=== PATIENT | female | born 1995 | race African-American/Black ===

== ENCOUNTER 2017-11-06 18:37 | Emergency (ER) | payer OTHER ==
[2017-11-06 19:07] LABS: BASOPHILS % (AUTO) 0.4 %; EOSINOPHILS # (AUTO) 0.1 10^3/uL (0.0-0.7); EOSINOPHILS % (AUTO) 1.4 %; HGB - HEMOGLOBIN 12.3 g/dL (12.0-16.0); LYMPHOCYTES # (AUTO) 3.1 10^3/uL (1.5-3.5); LYMPHOCYTES % (AUTO) 36.1 %; MEAN CORPUSCULAR HGB CONC 32.7 g/dL (32.0-36.0); MEAN CORPUSCULAR VOLUME 79.4 fL (81.0-99.0); MEAN PLATELET VOLUME 6.8 fL (7.9-10.8); MONOCYTES # (AUTO) 0.4 10^3/uL (0.0-1.0); MONOCYTES % (AUTO) 4.3 %; NEUTROPHILS % (AUTO) 57.8 %; PLT - PLATELET COUNT 295 10^3/uL (130-450); RED BLOOD COUNT 4.74 10^6/uL (4.20-5.40); RED CELL DISTRIBUTION WIDTH 14.9 % (12.0-15.0); WHITE BLOOD COUNT 8.6 x10^3/uL (4.8-10.8)
[2017-11-06 19:20] LABS: ALBUMIN 4.3 g/dL (3.2-5.5); ALBUMIN/GLOBULIN RATIO 1.1 (1.0-2.2); BILIRUBIN,TOTAL 0.3 mg/dL (0.2-1.0); CALCIUM 9.3 mg/dL (8.5-10.3); CREATININE 0.9 mg/dL (0.4-1.0); TOTAL PROTEIN 8.2 g/dL (6.7-8.2)
[2017-11-06 20:55] LABS: BILIRUBIN,URINE NEGATIVE (NEGATIVE); GLUCOSE, URINE (UA) NEGATIVE (NEGATIVE); KETONES,URINE (UA) NEGATIVE (NEGATIVE); LEUKOCYTE ESTERASE, URINE NEGATIVE (NEGATIVE); NITRITE,URINE NEGATIVE (NEGATIVE); OCCULT BLOOD,URINE SMALL (NEGATIVE); PROTEIN,URINE NEGATIVE (NEGATIVE); UROBILINOGEN,URINE 0.2 (NORMAL) E.U./dL (NORMAL)
[2017-11-06 21:03] LABS: CLARITY,URINE HAZY (CLEAR); HCG UR QUAL NEGATIVE
[2017-11-06 21:08] LABS: BACTERIA,URINE None Seen /HPF (None Seen); RBC,URINE 0-5 /HPF (0-5); SQUAMOUS EPITHELIAL CELL,UR FEW Squamous (<= Few)
[2017-11-06] MEDS ORDERED: ONDANSETRON ODT 4 MG TABLET TL STA (21:40)
[2017-11-06] MEDS ORDERED: LOPERAMIDE 2 MG CAPSULE PO STA (21:40)
--- NOTE | 2017-11-06 21:40 | ED Physician Documentation ---
PD HPI NVD - Stated complaint Stated Complaint: ABD PX - Chief complaint Chief Complaint: Abd Pain - History obtained from History obtained from: Patient - History of Present Illness Timing - onset: Yesterday Timing - details: Gradual onset Associated symptoms: Abdominal pain. No: Fever Contributing factors: No: Sick contact, Bad food Similar symptoms before: No diagnosis Recently seen: Not recently seen - Additonal information Additional information: Patient is a 22 year old female with no significant past medical history who is presenting to the emergency department for nausea and diarrhea. patient states that it started last night and she had three episodes today. patient complains of nausea but no vomiting. Patient states she has been able to drink fluids throughout the day. Review of Systems Ten Systems: 10 systems reviewed and negative Constitutional: denies: Fever GI: reports: Abdominal Pain, Nausea, Diarrhea. denies: Vomiting PD PAST MEDICAL HISTORY - Past Medical History Past Medical History: No Cardiovascular: None Respiratory: None Neuro: None Endocrine/Autoimmune: None GI: None MACHINE PIE MAKER: None : None HEENT: None Psych: None Musculoskeletal: None Derm: None - Past Surgical History Past Surgical History: No - Present Medications Home Medications: Ambulatory Orders Medication Instructions Recorded Confirmed Ondansetron Odt [Zofran] 4 mg TL Q6H PRN #14 tablet 11/06/17 - Allergies Allergies/Adverse Reactions: Allergies Allergy/AdvReac Type Severity Reaction Status Date / Time No Known Drug Allergies Allergy Verified 11/06/17 18:49 - Social History Does the pt smoke?: No Smoking Status: Never smoker Does the pt drink ETOH?: No Does the pt have substance abuse?: No - Immunizations Immunizations are current?: Yes - POLST Patient has POLST: No PD ED PE NORMAL - Vitals Vital signs reviewed: Yes - General General: Alert and oriented X 3, No acute distress, Well developed/nourished - HEENT HEENT: Atraumatic, Moist mucous membranes - Cardiac Cardiac: RRR - Respiratory Respiratory: No respiratory distress - Abdomen Abdomen: Soft, Non tender, Non distended - Derm Derm: Normal color, Warm and dry, No rash - Extremities Extremities: No deformity - Neuro Neuro: Alert and oriented X 3 Eye Opening: Spontaneous Results - Vitals Vitals: Vital Signs - 24 hr 11/06/17 11/06/17 18:47 20:46 Temperature 36.6 C 36.3 C L Heart Rate 95 80 Respiratory 20 18 Rate Blood Pressure 148/84 H 134/78 H O2 Saturation 100 Oxygen O2 Source Room air - Labs Labs: Laboratory Tests 11/06/17 11/06/17 11/06/17 18:55 19:04 19:04 WBC 8.6 RBC 4.74 Hgb 12.3 Hct 37.6 MCV 79.4 L MCH 26.0 L MCHC 32.7 RDW 14.9 Plt Count 295 MPV 6.8 L Neut # (Auto) 5.0 Lymph # (Auto) 3.1 [place] # (Auto) 0.4 Eos # (Auto) 0.1 Baso # (Auto) 0.0 Absolute Nucleated RBC 0.01 Nucleated RBC % 0.1 Sodium 136 Potassium 3.3 L Chloride 103 Carbon Dioxide 24 Anion Gap 9.0 BUN 18 Creatinine 0.9 Estimated GFR (MDRD) 96 Glucose 92 Calcium 9.3 Total Bilirubin 0.3 AST 23 ALT 16 Alkaline Phosphatase 83 Total Protein 8.2 Albumin 4.3 Globulin 3.9 Albumin/Globulin Ratio 1.1 Lipase 33 Urine Color YELLOW Urine Clarity HAZY Urine pH 6.0 Ur Specific [place]yl[place] >=1.030 H Urine Protein NEGATIVE Urine Glucose (UA) NEGATIVE Urine Ketones NEGATIVE Urine Occult Blood SMALL H Urine Nitrite NEGATIVE Urine Bilirubin NEGATIVE Urine Urobilinogen 0.2 (NORMAL) Ur Leukocyte Esterase NEGATIVE Urine RBC 0-5 Urine WBC 0-3 Ur Squamous Epith Cells FEW Squamous Urine Bacteria None Seen Ur Microscopic Review INDICATED Urine Culture Comments NOT INDICATED Urine HCG, Qual NEGATIVE PD MEDICAL DECISION MAKING - ED course Complexity details: reviewed old records, reviewed results, re-evaluated patient , considered differential, d/w patient ED course: patient was seen and examined at bedside. patient was well appearing in no distress. Patient's labs were within normal limits with no sign of dehydration. Patient was treated with zofran and loperamide. patient was able to tolerate po without difficulty. Patient was stable for discharge with outpatient follow up. - Sepsis Event Vital Signs: Vital Signs - 24 hr 11/06/17 11/06/17 18:47 20:46 Temperature 36.6 C 36.3 C L Heart Rate 95 80 Respiratory 20 18 Rate Blood Pressure 148/84 H 134/78 H O2 Saturation 100 Oxygen O2 Source Room air Departure - Departure Disposition: 01 Home, Self Care Clinical Impression: Gastroenteritis Condition: Good Instructions: ED Gastroenteritis Viral Follow-Up: primary,care provider [Other] - As Needed Prescriptions: Ondansetron Odt [Zofran] 4 mg TL Q6H PRN #14 tablet PRN Reason: Nausea / Vomiting Comments: Your symptoms today are being caused by gastroenteritis. Your diagnostics today were within normal limits. there is no sign of dehydration. You are being prescribed zofran for nausea and you can take over the counter immodium as needed to stop the diarrhea. it is important to stay well hydrated with gatorade or other electrolyte solution. You should follow up with your doctor if your symptoms persist for more than the the next 3-4 days. You can return for worsening symptoms. Forms: Activity restrictions
[2017-11-06 21:55] VITALS: BP 119/77
== END 2017-11-06 21:55 | disposition home or self-care (01) ==
LOC: ED 18:37
DX: K52.9 Noninfective gastroenteritis and colitis, unspecified (principal)
CPT/HCPCS: 36415; 80053; 81001; 81025; 83690; 85025; 99283; A9270; Q0162; 81003; 87086

== ENCOUNTER 2018-05-07 18:34 | Outpatient (CLI) | payer OTHER ==
[2018-05-07 19:39] LABS: BILIRUBIN,URINE NEGATIVE (NEGATIVE); GLUCOSE, URINE (UA) NEGATIVE (NEGATIVE); KETONES,URINE (UA) NEGATIVE (NEGATIVE); LEUKOCYTE ESTERASE, URINE NEGATIVE (NEGATIVE); NITRITE,URINE NEGATIVE (NEGATIVE); OCCULT BLOOD,URINE TRACE-LYSE (NEGATIVE); PH,URINE 6.5 PH (5.0-7.5); PROTEIN,URINE NEGATIVE (NEGATIVE); UROBILINOGEN,URINE 0.2 (NORMAL) E.U./dL (NORMAL)
[2018-05-07 19:42] LABS: CLARITY,URINE CLEAR (CLEAR)
[2018-05-07 19:44] LABS: BASOPHILS % (AUTO) 0.4 %; EOSINOPHILS # (AUTO) 0.1 10^3/uL (0.0-0.7); EOSINOPHILS % (AUTO) 1.5 %; HGB - HEMOGLOBIN 9.5 g/dL (12.0-16.0); LYMPHOCYTES # (AUTO) 1.8 10^3/uL (1.5-3.5); LYMPHOCYTES % (AUTO) 22.5 %; MEAN CORPUSCULAR HEMOGLOBIN 26.4 pg (27.0-31.0); MEAN CORPUSCULAR HGB CONC 32.3 g/dL (32.0-36.0); MEAN CORPUSCULAR VOLUME 81.8 fL (81.0-99.0); MEAN PLATELET VOLUME 7.5 fL (7.9-10.8); MONOCYTES # (AUTO) 0.5 10^3/uL (0.0-1.0); MONOCYTES % (AUTO) 5.8 %; NEUTROPHILS # (AUTO) 5.7 10^3/uL (1.5-6.6); NEUTROPHILS % (AUTO) 69.8 %; PLT - PLATELET COUNT 272 10^3/uL (130-450); RED BLOOD COUNT 3.61 10^6/uL (4.20-5.40); RED CELL DISTRIBUTION WIDTH 14.6 % (12.0-15.0); WHITE BLOOD COUNT 8.2 x10^3/uL (4.8-10.8)
[2018-05-07 19:55] LABS: CREATININE 0.6 mg/dL (0.4-1.0); URIC ACID 3.4 mg/dL (2.6-7.2)
[2018-05-07 19:57] LABS: CREATININE,URINE 91.2 mg/dL
[2018-05-07 19:59] LABS: TOTAL PROTEIN,URINE TIMED < 6 mg/dL
[2018-05-07 20:39] VITALS: BP 116/73
--- NOTE | 2018-05-07 21:18 | PROVIDER PROGRESS NOTE ---
Subjective - Prog Note Date Prog Note Date: 05/07/18 (HOME AGENT STAFF) Prog Note Time: 21:13 - Subjective Pt reports feeling: No change Subjective: Patient is 29 weeks EGA, [place] patient here due to migraine h/a for first time this . Has had a hx of migraines for 2+ years, no hx of trauma. Usually slow in onset and relieved with excedrin. This is the first time this that she has had a migraine. Typical sx of onset slowly, some nausea and sx diffuse in nature. Denies visual changes or any other problems such as motor problems. Patient does not have photophobia, sitting in bed in no obvious distress, conversing and smiling. H/A started 2 days ago. Denies hx of drug dependency or abuse. Also very mild left lower back/flank pain, muscular in nature. No other complaints. Objective - Vital Signs/Intake & Output Vital Signs: Vital Signs x48h Temp Pulse Resp BP Pulse Ox 05/07/18 20:13 88 116/73 05/07/18 18:48 115/73 05/07/18 18:45 37.1 C 97 20 119/96 H 100 - Objective General Appearance: positive: No acute distress, Alert Eyes Bilateral: positive: Normal inspection Abdomen: positive: Non-tender Neurologic/Psychiatric: positive: Oriented x3, CN's nml (2-12), Motor nml (RFHR, No decelerations. See labs.) - Lab Results Fish Bones: 05/07/18 19:37 05/07/18 19:37 Other Labs: Lab Results x24hrs 05/07/18 05/07/18 05/07/18 Range/Units 19:37 19:37 19:37 WBC 8.2 (4.8-10.8) x10^3/uL RBC 3.61 L (4.20-5.40) 10^6/uL Hgb 9.5 L (12.0-16.0) g/dL Hct 29.5 L (37.0-47.0) % MCV 81.8 (81.0-99.0) fL MCH 26.4 L (27.0-31.0) pg MCHC 32.3 (32.0-36.0) g/dL RDW 14.6 (12.0-15.0) % Plt Count 272 (130-450) 10^3/uL MPV 7.5 L (7.9-10.8) fL Neut # (Auto) 5.7 (1.5-6.6) 10^3/uL Lymph # (Auto) 1.8 (1.5-3.5) 10^3/uL [place] # (Auto) 0.5 (0.0-1.0) 10^3/uL Eos # (Auto) 0.1 (0.0-0.7) 10^3/uL Baso # (Auto) 0.0 (0.0-0.1) 10^3/uL Absolute Nucleated RBC 0.00 x10^3/uL Nucleated RBC % 0.0 /100WBC Creatinine 0.6 (0.4-1.0) mg/dL Estimated GFR (MDRD) 153 (>89) Uric Acid 3.4 (2.6-7.2) mg/dL AST 22 (10-42) IU/L Lactate Dehydrogenase 97 (91-225) IU/L Urine Color Urine Clarity (CLEAR) Urine pH (5.0-7.5) PH Ur Specific [place] (1.002-1.030) Urine Protein (NEGATIVE) mg/dL Urine Glucose (UA) (NEGATIVE) mg/dL Urine Ketones (NEGATIVE) mg/dL Urine Occult Blood (NEGATIVE) Urine Nitrite (NEGATIVE) Urine Bilirubin (NEGATIVE) Urine Urobilinogen (NORMAL) E.U./dL Ur Leukocyte Esterase (NEGATIVE) Ur Microscopic Review Urine Culture Comments Urine Creatinine mg/dL Ur Total Protein Timed mg/dL Protein/Creatinin Ratio 05/07/18 05/07/18 Range/Units 19:20 19:20 WBC (4.8-10.8) x10^3/uL RBC (4.20-5.40) 10^6/uL Hgb (12.0-16.0) g/dL Hct (37.0-47.0) % MCV (81.0-99.0) fL MCH (27.0-31.0) pg MCHC (32.0-36.0) g/dL RDW (12.0-15.0) % Plt Count (130-450) 10^3/uL MPV (7.9-10.8) fL Neut # (Auto) (1.5-6.6) 10^3/uL Lymph # (Auto) (1.5-3.5) 10^3/uL [place] # (Auto) (0.0-1.0) 10^3/uL Eos # (Auto) (0.0-0.7) 10^3/uL Baso # (Auto) (0.0-0.1) 10^3/uL Absolute Nucleated RBC x10^3/uL Nucleated RBC % /100WBC Creatinine (0.4-1.0) mg/dL Estimated GFR (MDRD) (>89) Uric Acid (2.6-7.2) mg/dL AST (10-42) IU/L Lactate Dehydrogenase (91-225) IU/L Urine Color YELLOW Urine Clarity CLEAR (CLEAR) Urine pH 6.5 (5.0-7.5) PH Ur Specific [place] 1.015 (1.002-1.030) Urine Protein NEGATIVE (NEGATIVE) mg/dL Urine Glucose (UA) NEGATIVE (NEGATIVE) mg/dL Urine Ketones NEGATIVE (NEGATIVE) mg/dL Urine Occult Blood TRACE-LYSE (NEGATIVE) Urine Nitrite NEGATIVE (NEGATIVE) Urine Bilirubin NEGATIVE (NEGATIVE) Urine Urobilinogen 0.2 (NORMAL) (NORMAL) E.U./dL Ur Leukocyte Esterase NEGATIVE (NEGATIVE) Ur Microscopic Review NOT INDICATED Urine Culture Comments NOT INDICATED Urine Creatinine 91.2 mg/dL Ur Total Protein Timed < 6 mg/dL Protein/Creatinin Ratio Not Reportable Assessment/Plan - Problem List (1) Migraine Impression: # 29 weeks gestation. Hx of migraines. # First episode of migraine this , relatively mild in nature. Preeclamptic work-up negative for preeclampsia. Patient normotensive as well. # Discussed medical management with APAP as first line: typically up to 1,000 mg at a time, usually 650 mg q6 hours, maximum 4,000 mg in 24 hours # Offered and accepted Rx for Fioricet ([id number], 50mg/325mg/40mg) #12: 1-2 p.o. q6h prn h/a, max 6 tabs in 24 hours. No RF F/U with OB provider in [facility], sooner prn. Voiced understanding and all questions answered.
== END 2018-05-07 21:13 | disposition home or self-care (01) ==
LOC: WFO 18:34 → FBP 18:37 → WFO 21:13
PROVIDERS: ATTEND Obstetrics & Gynecology
DX: O99.353 Diseases of the nervous system complicating pregnancy, third trimester (principal); G43.909 Migraine, unspecified, not intractable, without status migrainosus; Z3A.29 29 weeks gestation of pregnancy
CPT/HCPCS: 36415; 81001; 81003; 82565; 82570; 83615; 84156; 84450; 84550; 85025; 87086; 99213

== ENCOUNTER 2018-06-10 13:26 | Outpatient (CLI) | payer OTHER ==
[2018-06-10 18:55] LABS: HGB - HEMOGLOBIN 9.5 g/dL (12.0-16.0); MEAN CORPUSCULAR HEMOGLOBIN 26.2 pg (27.0-31.0); MEAN CORPUSCULAR HGB CONC 32.6 g/dL (32.0-36.0); MEAN CORPUSCULAR VOLUME 80.4 fL (81.0-99.0); MEAN PLATELET VOLUME 8.1 fL (7.9-10.8); RED BLOOD COUNT 3.61 10^6/uL (4.20-5.40); RED CELL DISTRIBUTION WIDTH 14.6 % (12.0-15.0); WHITE BLOOD COUNT 7.9 x10^3/uL (4.8-10.8)
== END 2018-06-10 23:59 | disposition home or self-care (01) ==
LOC: LAB.N 13:26
PROVIDERS: ATTEND Nurse Practitioner Obstetrics & Gynecology
DX: O99.019 Anemia complicating pregnancy, unspecified trimester (principal)
CPT/HCPCS: 36415; 85027

== ENCOUNTER 2018-06-25 08:00 | Outpatient (CLI) | payer OTHER ==
[2018-06-26 12:58] LABS: HEPATITIS C ANTIBODY NON-REACTIVE (NON-REACTIVE)
[2018-06-26 14:17] LABS: HIV AG/AB 4TH GEN NON-REACTIVE (NON-REACTIVE)
== END 2018-06-25 23:59 | disposition home or self-care (01) ==
LOC: LAB 08:00
PROVIDERS: ATTEND Registered Nurse
DX: Z34.90 Encounter for supervision of normal pregnancy, unspecified, unspecified trimester (principal)
CPT/HCPCS: 36415; 81599; 86592; 86803; 87389

== ENCOUNTER 2018-06-26 08:00 | Outpatient (CLI) | payer OTHER | END 2018-06-26 23:59 | disposition home or self-care (01) | LOC: LAB.R 08:00 | PROVIDERS: ATTEND Registered Nurse | DX: Z34.90 Encounter for supervision of normal pregnancy, unspecified, unspecified trimester (principal) | CPT/HCPCS: 87491; 87591 ==

== ENCOUNTER 2018-07-02 15:32 | Outpatient (CLI) | payer OTHER | END 2018-07-02 23:59 | disposition home or self-care (01) | LOC: LAB.R 15:32 | PROVIDERS: ATTEND Nurse Practitioner Obstetrics & Gynecology | DX: Z36.9 Encounter for antenatal screening, unspecified (principal) | CPT/HCPCS: 87797 ==

== ENCOUNTER 2018-07-10 07:08 | Outpatient (CLI) | payer OTHER ==
[2018-07-10 07:29] VITALS: BP 119/77
[2018-07-10 07:55] LABS: RUPTURE OF MEMBRANES PLUS NEGATIVE (NEGATIVE)
--- NOTE | 2018-07-10 08:11 | PROVIDER PROGRESS NOTE ---
- HPI Chief Complaint: Leakage of vaginal fluid Current : Current EDU 07/21/18 Gestation 38 Weeks and 3 Days 1 Para 0 Vital Signs Temperature 36.9 C 07/10/18 07:28 Heart Rate 84 07/10/18 07:28 Respiratory Rate 16 07/10/18 07:28 Blood Pressure 119/77 07/10/18 07:28 O2 Saturation 100 07/10/18 07:28 Temperature 36.9 C 07/10/18 07:28 Heart Rate 84 07/10/18 07:28 Respiratory Rate 16 07/10/18 07:28 Blood Pressure 119/77 07/10/18 07:28 O2 Saturation 100 07/10/18 07:28 - Exam ROM plus negative SVE deferred. Occasional contractions which palpate mild and patient unable to appreciate. - Procedures OB Procedure Performed: NST Diagnosis/Indication for NST: Other Date: 07/10/18 Procedure Details: NSt reactive. Baseline 140s, moderate variability, + accels, no decels. Contractions q 4-5 minutes, palpate mild and patient unable to appreciate. - Plan Plan: Aaliyah presents to [facility] with c/o moderate amount of clear vaginal fluid. She reports when the leakage occurred she did feel she may need to urinate. She re cently had intercourse and states the vaginal fluid was slightly mucousy. She denies vaginal bleeding and reports +FM. NST reactive. Baseline 140s, moderate variability, + accels, no decels. Contractions q 4-5 minutes, palpate mild and pt unable to appreciate. SVE deferred. ROM plus collected and is negative. Patient released home with precautions - routine f/u at [facility].
== END 2018-07-10 08:10 | disposition home or self-care (01) ==
LOC: WFO 07:08 → FBP 07:12 → WFO 08:10
PROVIDERS: ATTEND Nurse Practitioner Obstetrics & Gynecology
DX: O99.89 Other specified diseases and conditions complicating pregnancy, childbirth and the puerperium (principal); N89.8 Other specified noninflammatory disorders of vagina; Z3A.38 38 weeks gestation of pregnancy
CPT/HCPCS: 84112; 99213

== ENCOUNTER 2018-07-16 07:41 | Inpatient (IN) | payer OTHER ==
[2018-07-16] MEDS ORDERED: SODIUM CHLORIDE FLUSH 0.9% 10 ML SYRINGE IVP PRN (08:03)
[2018-07-16] MEDS ORDERED: ONDANSETRON 4 MG/2 ML VIAL IVP PRN (08:03)
[2018-07-16] MEDS: SODIUM CHLORIDE FLUSH 0.9% 10 ML SYRINGE IVP SCH ×3 (08:30→23:43)
[2018-07-16] MEDS: miSOPROStol 100 MCG TABLET BC SCH ×2 (08:43→12:50)
[2018-07-16 09:01] LABS: BASOPHILS % (AUTO) 0.4 %; EOSINOPHILS # (AUTO) 0.1 10^3/uL (0.0-0.7); EOSINOPHILS % (AUTO) 1.2 %; HGB - HEMOGLOBIN 9.6 g/dL (12.0-16.0); LYMPHOCYTES # (AUTO) 1.9 10^3/uL (1.5-3.5); LYMPHOCYTES % (AUTO) 22.3 %; MEAN CORPUSCULAR HEMOGLOBIN 26.1 pg (27.0-31.0); MEAN CORPUSCULAR HGB CONC 32.6 g/dL (32.0-36.0); MEAN PLATELET VOLUME 8.3 fL (7.9-10.8); MONOCYTES # (AUTO) 0.5 10^3/uL (0.0-1.0); MONOCYTES % (AUTO) 6.1 %; NEUTROPHILS # (AUTO) 5.8 10^3/uL (1.5-6.6); PLT - PLATELET COUNT 239 10^3/uL (130-450); RED BLOOD COUNT 3.69 10^6/uL (4.20-5.40); RED CELL DISTRIBUTION WIDTH 15.9 % (12.0-15.0); WHITE BLOOD COUNT 8.3 x10^3/uL (4.8-10.8)
--- NOTE | 2018-07-16 17:39 | PROVIDER PROGRESS NOTE ---
Labor Progress Note - Uterine Monitoring Uterine Monitoring Mode: positive: External toco Contraction Frequency (min/apart): 2-3 Contraction Intensity: positive: Moderate to strong Uterine Resting Tone: positive: Soft - Monitoring Monitor Mode: positive: External ultrasound Heart Rate Baseline: 140 Heart Rate Variability: positive: Moderate (6-25 bmp) Accelerations: positive: Present, 15x15 Decelerations: positive: None Strip Review: positive: Category I - Vaginal Exam Dilation (in cm): 2 Effacement (%): 80 Station: -1 Cervical Position: Anterior - Labor Progress Note Labor Progress Note/Additional Text: S: Up to the bathroom upon my arrival but states she is feeling more discomfort with contractions although she is coping well. She has been up at the side of the bed on the ball for quite some time today. Her family is supportive at the bedside. O: BP 116/67, HR 75 FHR baseline 140s, moderate variability, + accels, no decels Contractions palpate moderate every 2-3 minutes with soft resting tone SVE 2/80/-2, midposition, medium consistency, vertex BOW intact A: 23yo @ 39.2wks by LMP c/w first trimester U/S GBS negative Iron deficiency anemia Pre-induction cervical ripening with misoprostol 50mcg BC q 4 hours s/p 2 total doses FHR Category I P: Continuous monitoring Continue misoprostol for cervical ripening - will hold next dose due to consistent contractions every 2-3 minutes Repeat SVE in 2 hours or sooner PRN. If unchanged will administer third dose of misoprostol. Reviewed plan of care with patient, family, and labor RN who are in agreement with above plan and deny further questions or concerns at this time. Anticipate spontaneous vaginal delivery
--- NOTE | 2018-07-16 18:29 | HISTORY & PHYSICAL EXAMINATION ---
Admit History - Visit Reason Visit Reason: Other - : 1 Parity: 0 Premature: 0 Ectopic: 0 : 0 Care: positive: [facility] Risk/History: positive: None Complications This : positive: None Smoking Status: Never smoker - Mother's Labs Mother's Blood Type: positive: O Mother's RH: positive: Positive GBS: positive: Group B Step Negative Rubella Status: positive: Immune Meds/Allgy - Home Medications Home Medications: Ambulatory Orders Medication Instructions Recorded Confirmed Pnv No.121/Iron/Folic Acid 1 tab PO DAILY 07/03/18 07/03/18 [ Multivitamin Tablet] - Allergies Allergies/Adverse Reactions: Allergies Allergy/AdvReac Type Severity Reaction Status Date / Time No Known Drug Allergies Allergy Verified 11/06/17 18:49 Review of Systems - Constitutional Constitutional: denies: Fatigue, Fever, Chills - Eyes Eyes: denies: Blurred vision, Spots in vision, Dipolpia - Cardiovascular Cariovascular: denies: Irregular heart rate, Palpitations, Chest pain, Edema - Respiratory Respiratory: denies: Wheezing, SOB at rest - Gastrointestinal Gastrointestinal: denies: Constipation, Diarrhea, Nausea, Vomiting - Genitourinary Genitourinary: denies: Dysuria - Integumentary Integumentary: denies: Rash, Pruritis - Neurological Neurological: denies: Headache - Psychiatric Psychiatric: denies: Depression, Anxiety Physical - Abdominal Exam Vital Signs: Temp Pulse Resp BP Pulse Ox 36.8 C 93 16 115/65 07/16/18 08:04 07/16/18 08:04 07/16/18 08:04 07/16/18 08:04 - Monitoring Strip Review: positive: Category I - Vaginal Exam Membranes: positive: Membranes intact - Speculum Exam Speculum Exam Performed: positive: No Plan for Labor - Plan For Labor I expect patient to be DC'd or transferred within 96 hours.: Yes Plan for Labor: HPI: 23yo @ 39.2 wks gestation by LMP presented at 0730 on 07/16/2018 for elective induction of labor with pre-induction cervical ripening. She reports intermittent contractions over the past several days but nothing overly uncomfortable or consistent. She denies VB or Lof and reports +FM. She denies headache, visual disturbances, RUQ or epigastric pain and denies edema. She has been a patient of [facility] since 33.0wks duration when she transferred her care from [facility]. Prior to her transfer she received regular care from [facility]. She is dated by LMP which is c/w 7.3wk U/S. Her has been complicated by anemia for which she has received 2 IV iron transfusions and was previously prescribed PO ferrous sulfate for which she took intermittently because she states it made her constipated. She also experienced prolonged N/V into her third trimester. Dating criteria: LMP 10/16/2017 Initial ultrasound @ 7.3wks - agrees Serial exams: agree PMHx: unremarkable Surgical Hx: [place] teeth removal Social Hx: Never smoker. No ETOH or IVDA. [employer]. Family Hx: Asthma - MGM, brother, father; Arthritis - Mother, PGM, MGM; Heart disease - MGM Medications: PNV; ferrous sulfate 325mg tid Allergies: NKDA Immunizations: influenza 01/15/2018; tdap 04/25/2018 OB History: G1: Current Ultrasounds: FAS WNL with exception of incomplete due to poor visualization of lower extremeties and heart F/u WNL. Posterior, placenta, no previa. 3VC. Size c/w dates labs: Hgb 9.6; Hct 29.5, PLT 239 Blood type O pos, antibody neg Rubella immune varicella immune RPR non-reactive HepB neg HepC neg TSH 1.20 GC/CT neg HIV non-reactive 1 hour GTT 100 28wk antibody neg GBS neg Genetic testing - serum integrated screen - neg, CF neg 12/05/2018 pap WNL Physical Exam: Normocephalic, atraumatic Heart RRR w/o M/G/R Lungs CTAB Abdomen gravid, soft, and nontender Bilateral LE's no edema Mood is good Assessment: 23yo @ 39.2wks gestation by L=7.3wk U/S Pre-induction cervical ripening with misoprostol FHR Category I GBS negative Plan: Continuous monitoring Place in observation status until active labor Pre-induction cervical ripening with 50mcg BC misoprostol q 4 hours Anticipate spontaneous vaginal delivery.
--- NOTE | 2018-07-16 23:03 | PROVIDER PROGRESS NOTE ---
Labor Progress Note - Uterine Monitoring Uterine Monitoring Mode: positive: External toco Contraction Frequency (min/apart): 2-4 Contraction Intensity: positive: Moderate to strong Uterine Resting Tone: positive: Soft - Monitoring Monitor Mode: positive: External ultrasound Heart Rate Baseline: 140 Heart Rate Variability: positive: Moderate (6-25 bmp) Accelerations: positive: Present, 15x15 Decelerations: positive: None Strip Review: positive: Category I - Labor Progress Note Labor Progress Note/Additional Text: S: Patient sitting in bed. Was walking the hallways an hour ago and states she feels less discomfort when she is moving around. Feels she will be unable to sleep due to discomfort from contractions if she lays down flat but does feel she may be able to get some sleep if she sits in a high fowlers position in bed. Her family is supportive at the bedside. O: BP 120/70, HR 75 FHR baseline 140, moderate variability, + accels, no decels Contractions palpate moderate to strong every 2-3 minutes with soft resting tone SVE deferred per patient request. BOW intact A: 23yo @ 39.2 Early labor GBS neg FHR Category I P: Intermittent monitoring Advised patient to attempt to get some sleep over the next couple of hours if possible Anticipate spontaneous vaginal delivery Patient verbalized understanding and denies further questions or concerns at this time.
[2018-07-17] MEDS ORDERED: MORPHINE 10 MG/ML VIAL IM SCH
[2018-07-17] MEDS ORDERED: MORPHINE 10 MG/ML VIAL IVP ONE
--- NOTE | 2018-07-17 08:37 | PROVIDER PROGRESS NOTE ---
Labor Progress Note - Uterine Monitoring Uterine Monitoring Mode: positive: External toco Contraction Frequency (min/apart): 3-4 Contraction Intensity: positive: Moderate to strong Uterine Resting Tone: positive: Soft - Monitoring Monitor Mode: positive: External ultrasound Heart Rate Baseline: 140 Heart Rate Variability: positive: Moderate (6-25 bmp) Accelerations: positive: Present, 15x15 Decelerations: positive: None Strip Review: positive: Category I - Vaginal Exam Dilation (in cm): 4-5 Effacement (%): 90 Station: -1 Cervical Position: Midposition - Labor Progress Note Labor Progress Note/Additional Text: S: Aaliyah is coping well w/ her uterine contractions; she reports they are painful but she declines anesthesia/analgesia; she may desire NO2, and we reviewed this option. She found the jacuzzi tub to be helpful earlier & may elect to return to tub; understands that she cannot current utilize hydrotherapy & self-administered NO2. Will consider options. Family present @ bedside & very involved & supportive. O: AAox3, NAD WA gravid female VSS EFM: BL 140bpm, +accels, no decels, mod albina TOCO: UCs q3-4 min x90-110 sec, palp mod to strong SVE: 4-5/90/-1 IBOW, position LOP A: 23 y/o @ 39w3d by first trimester US s/p Misoprostol 50mcg buccally x1 for elective IOL 39+ weeks IBOW, GBS neg Progressive cervical change w/ ongoing uterine contractions Adequate pain control w/o analgesia/anesthesia; desires unmedicated delivery; excellent bedside support FHTs cat I P: 1. Reviewed position & implications 2. Reviewed optimal maternal positioning to facilitate rotation & descent 3. Extensive review of pain management options; pt considering hydrotherapy, will get up & move & see how this affects her discomfort 4. No additional augmentation indicated @ this time secondary to progressive cervical change; pt aware of management options & options for augmentation if she does not further progress 5. Reassess cervical status x4 hours, earlier PRN 6. Reviewed plan of care w/ pt & family @ bedside; discussed clinical status & plan of care w/ full charge bookkeeper; reviewed clinical status w/ Alexandra Terry CNM, who will assume ongoing obstetric care from here. No expressed concerns.
[2018-07-17] MEDS: miSOPROStol 100 MCG TABLET BC SCH (11:08)
--- NOTE | 2018-07-17 11:17 | PROVIDER PROGRESS NOTE ---
Labor Progress Note - Uterine Monitoring Uterine Monitoring Mode: positive: External toco Contraction Frequency (min/apart): 4-8 Contraction Intensity: positive: Moderate Uterine Resting Tone: positive: Soft - Monitoring Monitor Mode: positive: External ultrasound Heart Rate Baseline: 140 Heart Rate Variability: positive: Moderate (6-25 bmp) Accelerations: positive: Present, 15x15 Decelerations: positive: None Strip Review: positive: Category I - Labor Progress Note Labor Progress Note/Additional Text: S: Patient sitting up at the edge of the bed eating ice chips. She states she feels better after being able to sleep this morning. She was given morphine overnight to promote rest and conserve energy. She feels the majority of her sleep came early this morning and feels ready to meet her baby. Family supportive at the bedside. O: BP 126/76, RH 70 FHR baseline 135, moderate variability, + accels, no decels Contractions palpate moderate every 4-8 minutes with soft resting tone. SVE deferred. BOW intact A: 23yo @ 39.1wks gestation GBS neg Early labor FHT Category I P: Continuous monitoring Misoprostol 50mcg BC q 4 hours Consider AROM with next SVE Anticipate spontaneous vaginal delivery Reviewed plan of care with patient, family, and labor RN who are all in agreement and deny further questions or concerns at this time.
--- NOTE | 2018-07-17 13:39 | PROVIDER PROGRESS NOTE ---
Labor Progress Note - Uterine Monitoring Uterine Monitoring Mode: positive: External toco Contraction Frequency (min/apart): 4-8 Contraction Intensity: positive: Moderate Uterine Resting Tone: positive: Soft - Monitoring Monitor Mode: positive: External ultrasound Heart Rate Baseline: 140 Heart Rate Variability: positive: Moderate (6-25 bmp) Decelerations: positive: None Strip Review: positive: Category I - Labor Progress Note Labor Progress Note/Additional Text: S: Sitting up in bed eating her lunch with her family supportive at the bedside. States she is starting to feel more discomfort but declines cervical examination. Reviewed AROM and pt declines at this time. Reviewed pain management options including nitrous oxide and jacuzzi. Pt states she may consider the jacuzzi again as this helped her yesterday. SVE deferred per pt request Continue 50mcg BC misoprostol q 4 hours for pre-induction cervical ripening Plan AROM with next SVE. Pt and family verbalized understanding and deny further questions or concerns at this time.
--- NOTE | 2018-07-17 17:22 | PROVIDER PROGRESS NOTE ---
Labor Progress Note - Uterine Monitoring Uterine Monitoring Mode: positive: External toco Contraction Frequency (min/apart): 2-6 Contraction Intensity: positive: Strong Uterine Resting Tone: positive: Soft - Monitoring Monitor Mode: positive: External ultrasound Heart Rate Baseline: 140 Heart Rate Variability: positive: Moderate (6-25 bmp) Accelerations: positive: Present, 15x15 Decelerations: positive: None Strip Review: positive: Category I - Vaginal Exam Dilation (in cm): 5 Effacement (%): 80 Station: -1 Cervical Position: Midposition - Labor Progress Note Labor Progress Note/Additional Text: S: Patient breathing through contractions. She has briefly used the nitrous but now feels she desires to get in the jacuzzi. Family supportive at the bedside. O: FHR baseline 140, moderate variability, + accels, no decels Contractions palpate strong every 2-6 minutes with soft resting tone. A: 23yo @ 39.1wks gestation Pre-induction cervical ripening with misoprostol s/p 2 total doses AROM moderate amount of clear fluid at FHT Category I GBS neg P: Continuous monitoring Encouraged ambulation and position changes for pain management Pt planning to get into the jacuzzi - encouraged Anticipate spontaneous vaginal delivery
--- NOTE | 2018-07-17 18:47 | ANESTHESIA ---
Pre-Anesthesia VS, & Labs - Diagnosis active labor - Procedure vaginal delivery Vital Signs: Temp Pulse Resp BP Pulse Ox 36.8 C 93 16 115/65 07/16/18 08:04 07/16/18 08:04 07/16/18 08:04 07/16/18 08:04 Height 5 ft 4 in Weight (kg) 96.162 kg Body Mass Index 32.5 - NPO Other (clear liquids) - Is Patient ?: Yes - Lab Results Current Lab Results: Laboratory Tests 07/16/18 08:30: WBC 8.3, RBC 3.69 L, Hgb 9.6 L, Hct 29.5 L, MCV 80.0 L, MCH 26.1 L, MCHC 32.6, RDW 15.9 H, Plt Count 239, MPV 8.3, Neut # (Auto) 5.8, Lymph # (Auto) 1.9, [place] # (Auto) 0.5, Eos # (Auto) 0.1, Baso # (Auto) 0.0, Absolute Nucleated RBC 0.00, Nucleated RBC % 0.0 Fish Bones: 07/16/18 08:30 Home Medications and Allergies Active Medications Lactated Ringer's (Lr) 1,000 mls @ 100 mls/hr IV .Q10H [facility] Misoprostol (Cytotec) 50 mcg BC Q4HR [facility] Last Admin: 07/17/18 11:08 Dose: 50 mcg Ondansetron HCl (Zofran Inj) 4 mg IVP Q4HR PRN PRN Reason: Nausea / Vomiting Sodium Chloride (Normal Saline Flush 0.9%) 10 ml IVP 0100,0900,1700 [facility] Last Admin: 07/16/18 23:43 Dose: 10 ml Sodium Chloride (Normal Saline Flush 0.9%) 10 ml IVP PRN PRN PRN Reason: NEEDED PER PROVIDER ORDERS Pnv No.121/Iron/Folic Acid [ Multivitamin Tablet] 1 tab PO DAILY 07/03/18 Allergies/Adverse Reactions: Allergies Allergy/AdvReac Type Severity Reaction Status Date / Time No Known Drug Allergies Allergy Verified 11/06/17 18:49 Anes History & Medical History - Anesthetic History Family history of Anesthesia Complications: Denies Family history of Malignant Hyperthermia: Denies - Medical History Cardiovascular: reports: None Pulmonary: reports: None Gastrointestinal: reports: None Urinary: reports: None Neuro: reports: None Musculoskeletal: reports: None Endocrine/Autoimmune: reports: None Blood Disorders: reports: None, Anemia Skin: reports: None Smoking Status: Never smoker Psychosocial: reports: No issues indicated - Obstetrical History : 1 Parity: 0 Events: positive: None Complications: positive: None Exam General: Alert, Oriented x3, Cooperative, No acute distress Dental: WNL Mouth Openin Fingerbreadth Neck Mobility: Normal Mallampati classification: III Thyromental Distance: 4-6 cm Plan Anesthesia Type: Epidural Consent for Procedure(s) Verified and Reviewed: Yes Code Status: Attempt Resuscitation ASA classification: 2-Mild systemic disease Is this case an emergency?: No
[2018-07-17] MEDS ORDERED: BUPIVACAINE 0.25% PF 10 ML VIAL ONE (18:57)
[2018-07-17] MEDS ORDERED: fent/BUPIV 2 MCG/0.125% 250 ML EP ONE (18:57)
[2018-07-17] MEDS ORDERED: ePHEDrine 50 MG/ML VIAL IVP PRN (19:07)
[2018-07-17] MEDS ORDERED: ONDANSETRON 4 MG/2 ML VIAL IVP PRN (19:07)
[2018-07-17] MEDS ORDERED: LACTATED RINGERS 500 ML IV ONE (19:07)
[2018-07-17] MEDS ORDERED: NALBUPHINE 10 MG/ML AMP IVP PRN (19:07)
[2018-07-17] MEDS ORDERED: fent/BUPIV 2 MCG/0.125% 250 ML EP PRN (19:07)
[2018-07-17] MEDS ORDERED: NALOXONE 0.4 MG/ML VIAL IVP PRN (19:07)
[2018-07-17] MEDS ORDERED: LACTATED RINGERS 500 ML IV SCH (19:39)
[2018-07-17] MEDS: LACTATED RINGERS 1,000 ML IV SCH (20:47)
[2018-07-17] MEDS ORDERED: OXYTOCIN/SODIUM CHLORIDE 500 ML IV SCH (22:00)
[2018-07-18] MEDS: LACTATED RINGERS 1,000 ML IV SCH (04:24)
[2018-07-18] MEDS ORDERED: OXYTOCIN/SODIUM CHLORIDE 500 ML IV PRN (06:09)
--- NOTE | 2018-07-18 06:09 | DELIVERY NOTE ---
Delivery Note - Labor Labor: positive: Augmented by ARM, Augmented by oxytocin, Other - Delivery Method Delivery Method: positive: Spontaneous vaginal delivery - Presentation Presentation: positive: Vertex, LYLE - left occiput anterior - Nuchal Cord Nuchal Cord: positive: Present, Reduced - Amniotic Fluid Description Amniotic Fluid Description: positive: Clear - Episiotomy Type Episiotomy Type: positive: None - Laceration Laceration: positive: None - Delivery Outcome Delivery Outcome: positive: Livebirth - Grand Ledge Grand Ledge: positive: Placed in direct skin contact with mother, Bulb syringe, Stimulated, Warmed, [place] used sex: positive: Male - Cord Cord: positive: 3 vessels - Placenta Placenta: positive: Intact, Spontaneous - Estimated Blood Loss Estimated Blood Loss (in cc): 250 - Post Delivery Events Post Delivery Events: positive: No post delivery events - Delivery Comments (Free Text/Narrative) Delivery Comments (Free Text/Narrative): This 23yo @ 39.2 wks gestation presented @ 0730 on 07/16/2018 for elective IOL. She received 3 total doses of 50mcg BC misoprostol for cervical ripening. FHR demonstrated a Category I tracing throughout labor. Normal labor course. AROM at 1705 and was noted to be a moderate amount of clear fluid. Epidural placed per maternal request. Pitocin augmentation with titration per protocol for a max infusion rate of 4 mU/mL. She progressed to c/c/+1 @ 0432. Normal of viable male at 0544 on 07/18/2018. Nuchal cord x 1 - reduced. The was placed on maternal abdomen, stimulated, dried, and placed skin to skin. Apgars 8/9 at 1 and 5 min respectively. Pitocin administered via IV for hemostasis. The umbilical cord was allowed to stop pulsating at which time it was doubly clamped by CNM and cut by FOB. 3VC. Cord blood was obtained. Placenta delivered spontaneously and intact at 0549. EBL 250mL. Uterine fundus firm and there is no excessive bleeding. The perineum, vagina, and cervix were inspected and found to be intact. Family bonding well. Both mother and baby were left in skin to skin contact position and in stable condition.
[2018-07-18] MEDS ORDERED: HYDROCORTISONE 1% CREAM 28 GM TUBE PR PRN (06:10)
[2018-07-18] MEDS ORDERED: WITCH HAZEL/GLYCERIN 1 EACH MED..PAD TOP PRN (06:10)
[2018-07-18] MEDS ORDERED: OXYTOCIN 10 UNIT/ML VIAL IM ONE (06:10)
[2018-07-18] MEDS: IBUPROFEN 800 MG TABLET PO SCH ×3 (07:38→20:02)
[2018-07-18] MEDS: ACETAMINOPHEN 500 MG TABLET PO SCH ×2 (09:27→17:44)
[2018-07-18] MEDS: DOCUSATE SODIUM 100 MG CAPSULE PO SCH ×2 (09:28→20:02)
[2018-07-19] MEDS: IBUPROFEN 800 MG TABLET PO SCH ×2 (02:07→08:49)
[2018-07-19] MEDS: ACETAMINOPHEN 500 MG TABLET PO SCH (02:07)
--- NOTE | 2018-07-19 07:57 | Discharge Plan ---
Discharge Plan Disposition: 01 Home, Self Care Condition: Good Diet: Regular Activity Restrictions: No Restrictions Shower Restrictions: No Driving Restrictions: No Weight Bearing: Full Weight No Smoking: If you smoke, Please STOP! Call for help. Follow-up with: Alexandra Terry CNM, ARNP [Provider Admit Priv/Credential] -
--- NOTE | 2018-07-19 08:04 | PROVIDER PROGRESS NOTE ---
Subjective - Subjective Subjective: FINAL PROGRESS NOTE: S: Bonding well with baby. without difficulty. Bleeding decreased and is light. Pain well controlled with oral medications. She states she has been feeling a little weak since the middle of the night. She is unsure if it is just fatigue or due to persistent anemia. She denies dizziness or light headedness. Denies chest pain or heart palpitations. She does strongly desire to go home today. Her is supportive and sleeping at the bedside. O: BP 113/66, HR 66, T 36.9, RR 16, O2 98 Heart RRR w/o M/G/R, lungs CTAB, abdomen soft and nontender with fundus firm at U, Perineum intact. Light lochia rubra. Bilateral LE's no edema. Admit Hgb 9.6; EBL at delivery 250mL. A: 23yo -->P1 PPD#1 s/p TSVD of viable male Iron deficiency anemia complicating and - asymptomatic with exception of feeling fatigued. May be due to lack of sleep secondary to infant. Perineum intact P: Reviewed self care and warning s/sx. IV ferrous gluconate transfusion prior to discharge Discharge home today on PPD#1. Continuation of PNV while . Continue ibuprofen and tylenol PO for pain management PRN pain. F/u in [address] [facility] for support visit and in 3 weeks for routine visit, or sooner PRN. Reviewed plan of care with patient and she verbalized understanding and agrees to above plan. She denies further questions or concerns at this time. Objective - Vital Signs/Intake & Output Vital Signs: Vital Signs x48h Temp Pulse Resp BP Pulse Ox 07/19/18 05:45 36.9 C 66 16 113/66 98 07/19/18 00:00 36.8 C 71 16 117/65 99 Intake & Output: Intake & Output 07/16/18 07/17/18 07/18/18 07/19/18 23:59 23:59 23:59 23:59 Intake Total 1000 3492.739 1134.150 700 Output Total 1700 Balance 1000 7943.433 1414.150 700 - Lab Results Fish Bones: 07/16/18 08:30
[2018-07-19 08:10] VITALS: BP 121/69
[2018-07-19] MEDS: DOCUSATE SODIUM 100 MG CAPSULE PO SCH (08:49)
[2018-07-19] MEDS ORDERED: SODIUM CHLORIDE FLUSH 0.9% 10 ML SYRINGE ONE (08:52)
[2018-07-19] MEDS ORDERED: FERRIC GLUCONATE 125 MG in SODIUM CHLORIDE 0.9% 100ML 100 ML IV SCH (09:00)
--- NOTE | 2018-07-19 13:26 | Labor Flowsheet ---
Labor Flowsheet Datetime Report Generated by CPN: 07/19/2018 13:26 Datetime: 07/19/2018 08:03 VITAL SIGNS NBP Sys/Carolyn/Mean (mmHg): 121 : 69 : 79 Pulse: 69 Datetime: 07/18/2018 12:00 SpO2 (%): 99 Datetime: 07/18/2018 07:40 Stage of : Recovery Datetime: 07/18/2018 06:30 PAIN Pain Scale: 2 Pain Presence: Intermittent Pain Type: Cramping Pain Location: Back Pain Goal: 5 Pain Relief Measures: Comfort Measures Pain Coping: Talking Through Contractions Anesthesia Level Check: T12 Datetime: 07/18/2018 05:45 LaborFlag: Labor Datetime: 07/18/2018 05:30 UTERINE ACTIVITY Monitor Mode: External Frequency (min): 3-5 Quality: Moderate Duration (sec): 70-90 Pattern: Normal: <= 5 Contractions in 10 Minutes Resting Tone (Palpate): Relaxed ASSESSMENT A Monitor Mode: External US FHR Baseline Rate : 125 Variability: Moderate 6-25 bpm Accelerations: 15X15 Datetime: 07/18/2018 05:27 MEDICATIONS Pitocin (milliunits): Increased to @ 4 Datetime: 07/18/2018 05:00 Temperature (C): 37.2 Temperature Route: Oral Datetime: 07/18/2018 04:32 VAGINAL EXAM Dilatation (cm): 10.0 Effacement (%): 100 Station: 3 Exam by: Lauren Terry CNM Datetime: 07/18/2018 03:56 Monitor Interventions for FHR: Ultrasound Adjusted Comments: briefly tracing Maternal HR, Datetime: 07/18/2018 03:05 Patient Care Comments: far right lateral with peanut ball under left leg Datetime: 07/18/2018 02:30 Respirations: 16 Datetime: 07/18/2018 01:00 Decelerations: Late (Annotations: 1 late decel noted) Datetime: 07/17/2018 23:46 Communication Comments: NO new orders fro A Mara, CNM at this time Datetime: 07/17/2018 22:34 TEACHING Instructional Method: Patient Instructed Plan of Care: Plan of Care Discussed; Induction Medications: Pitocin Datetime: 07/17/2018 20:27 Membranes Ruptured Date/Time: 07/17/2018 17:05 Datetime: 07/17/2018 20:20 Monitor Interventions for UA: [place] Adjusted Datetime: 07/17/2018 20:00 MATERNAL ASSESSMENT Level of Consciousness: Fully Conscious DTR's/Clonus: DTRs 1+; No Clonus (Annotations: DTRs +1 in upper extremities, Epidural in place) Headache: Denies Breath Sounds, Left: Clear and Equal Breath Sounds, Right: Clear and Equal Nausea/Vomiting: Denies RUQ Epigastric Pain: Denies Datetime: 07/17/2018 19:21 Patient Position/Activity: Left Tilt Datetime: 07/17/2018 19:13 Epidural Procedure: Completed Datetime: 07/17/2018 18:48 ANESTHESIA Anesthesia Plans: Epidural Epidural Positioning: Sitting Datetime: 07/17/2018 18:46 Anesthesia Comments: Camacho SPACE ENGINEER at bedside Datetime: 07/17/2018 18:40 PATIENT CARE IV/Blood Work: IV Bolus Started Datetime: 07/17/2018 18:33 COMMUNICATION Communication: Call/Page Placed to Provider Datetime: 07/17/2018 18:14 Provider Notified (Name): A Mara CNM Notification Reason: Status Update Datetime: 07/17/2018 17:25 Comfort Measures: Hot Shower/Tub/Spa Datetime: 07/17/2018 17:05 Membrane Status: Ruptured Membranes Rupture Method: Artificial Amniotic Fluid Color: Clear Amniotic Fluid Amount: Moderate Amniotic Fluid Odor: Normal Datetime: 07/17/2018 16:52 Medication Comments: Nitrous oxide set up, pt and family educated on use Datetime: 07/17/2018 16:01 Contraction Comments: difficulty tracing ctx due to maternal movement, RN at bedside providing cont inuous labor support and monitoring ctx Datetime: 07/17/2018 11:08 Cervical Ripening Agents: Cytotec @ Datetime: 07/17/2018 11:04 Provider Reviewed Strip: Yes Datetime: 07/17/2018 09:30 Category: Category I Oxygen Method: Room Air Datetime: 07/17/2018 05:00 FHR Baseline Changes: No Baseline Change Datetime: 07/17/2018 00:30 Analgesics/Sedatives: Morphine Sulfate (mg) @ 10 Datetime: 07/17/2018 00:28 I/O Interventions: Up to BR Datetime: 07/17/2018 00:01 Vaginal Bleeding: Normal Show Cervix, Consistency: Soft Cervix, Position: Midposition Datetime: 07/16/2018 23:50 Strip Reviewed by: CNM Mara Datetime: 07/16/2018 23:45 Pain Management: PRN Medications Teaching Comments: Reviewed options for rest/pain mgmt (Ambien/Tylenol vs Morphine); will discuss w ith provider Datetime: 07/16/2018 19:53 Unit Routine: Unit Personnel; Handwashing; Monitoring
--- NOTE | 2018-07-19 18:08 | DISCHARGE SUMMARY ---
Physician: JYOTHI Munroe DATE OF ADMISSION: 07/17/2018 DATE OF DISCHARGE: 07/19/2018 DIAGNOSES ON ADMISSION 1. A 23-year-old G1, P0 at 39.1 weeks gestation. 2. Group B Streptococcus negative. 3. Early labor. DIAGNOSES ON DISCHARGE 1. A 23-year-old G1,P1-0-0-1 status post spontaneous vaginal delivery on 07/18/2018, iron deficiency anemia. The patient is asymptomatic other than feeling some fatigue, which may be related to having a . 2. . 3. Normal recovery. BRIEF HISTORY: Aaliyah is a patient of [facility] who presented on 07/16/2018 for preinduction cervical ripening with misoprostol. She received 3 total doses of 50 mcg misoprostol for cervical ripening. AROM occurred at 1705 on 07/17/2018 and was noted to be a moderate amount of clear fluid. Epidural placed per maternal request. Pitocin augmentation with titration per protocol for a max infusion rate of 4mU/mL. She spontaneously delivered a viable male infant at 0544 on 07/18/2018. EBL 250 mL. 's were 8 and 9 at 1 and 5 minutes respectively. The perineum, vagina and cervix were inspected and found to be intact. She has been doing well in her course. She is ambulating and tolerating a regular diet. She is urinating without difficulty and her lochia is normal. Her pain is well controlled with oral medications. She has been dealing with iron deficiency anemia throughout her for which she received 2 iron transfusions during her third trimester. Today she complains of feeling fatigued and we reviewed that this may be related to lack of sleep as she is otherwise deemed asymptomatic and denies headache, lightheadedness or feeling faint. Her blood pressure and heart rate are both within normal limits. She will receive a ferrous gluconate IV transfusion prior to her discharge home today. She will be discharged home today on day #1 with instructions to continue her vitamin while , and to take [id number] ibuprofen and Tylenol for pain management as needed. She intends to followup with myself at [facility] in 1 week for support visit and in 3 weeks for routine visit. She has been given precautions to call if she has any worsening fevers, chills, abdominal pain, increased bleeding or foul-smelling vaginal lochia. TD: 07/19/2018 08:19 MTDBibiana
== END 2018-07-19 13:25 | disposition home or self-care (01) | DRG 807 ==
LOC: WFO 07:41 → FBP 07:45 → WFO 08:02 → FBP 08:03 → OBSVTOIN 07-17 21:40
PROVIDERS: ADMIT Nurse Practitioner Obstetrics & Gynecology; ATTEND Nurse Practitioner Obstetrics & Gynecology
PROC: 10907ZC Drainage of Amniotic Fluid, Therapeutic from Products of Conception, Via Natural or Artificial Opening (ICD-10-PCS; 2018-07-17)
PROC: 10E0XZZ Delivery of Products of Conception, External Approach (ICD-10-PCS; principal; 2018-07-18)
DX: O99.02 Anemia complicating childbirth (principal); Z37.0 Single live birth; D50.9 Iron deficiency anemia, unspecified; O69.81X0 Labor and delivery complicated by cord around neck, without compression, not applicable or unspecified; Z3A.39 39 weeks gestation of pregnancy; Z79.899 Other long term (current) drug therapy
CPT/HCPCS: 36415; 85025; A9270; G0378; G0379; J2916; J7120

== ENCOUNTER 2018-07-27 04:38 | Emergency (ER) | payer OTHER ==
--- NOTE | 2018-07-27 05:08 | ED Physician Documentation ---
PD HPI ABD PAIN - Stated complaint Stated Complaint: ABD PX - Chief complaint Chief Complaint: Abd Pain - History obtained from History obtained from: Patient - History of Present Illness Timing - onset: How many hours ago (1) Timing - duration: Hours (1) Timing - details: Gradual onset, Waxing and waning Pain level now: 4 Quality: Pain Location: RLQ Radiation: Other (no radiation) Improved by: Laying still Worsened by: Moving, Palpation Associated symptoms: Vaginal bleeding (has had vaginal bleeding since 9 days ago; no worse this morning than previous). 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 She is 9 days post- from [facility] (39 weeks 2 days). Review of Systems Constitutional: denies: Fever, Chills, Sweats Cardiac: reports: Reviewed and negative Respiratory: reports: Reviewed and negative GI: reports: Abdominal Pain. denies: Abdominal Swelling, Nausea, Vomiting, Constipation, Diarrhea : reports: Vaginal bleeding (no noticeable difference compared to previous (as noted in HPI)). denies: Dysuria, Frequency Musculoskeletal: denies: Back pain PD PAST MEDICAL HISTORY - Past Medical History Cardiovascular: None Respiratory: None Neuro: None Endocrine/Autoimmune: None GI: None WATER SUPERINTENDENT: None : None HEENT: None Psych: None Musculoskeletal: None Derm: None - Past Surgical History Past Surgical History: No - Present Medications Home Medications: Ambulatory Orders Medication Instructions Recorded Confirmed Pnv No.121/Iron/Folic Acid 1 tab PO DAILY 07/03/18 07/03/18 [ Multivitamin Tablet] - Allergies Allergies/Adverse Reactions: Allergies Allergy/AdvReac Type Severity Reaction Status Date / Time No Known Drug Allergies Allergy Verified 11/06/17 18:49 - Social History Does the pt smoke?: No Smoking Status: Never smoker Does the pt drink ETOH?: No Does the pt have substance abuse?: No - Immunizations Immunizations are current?: Yes - POLST Patient has POLST: No PD ED PE NORMAL - Vitals Vital signs reviewed: Yes - General General: Alert and oriented X 3, No acute distress, Well developed/nourished - HEENT HEENT: Moist mucous membranes - Neck Neck: Supple, no meningeal sign - Cardiac Cardiac: RRR, No murmur - Respiratory Respiratory: No respiratory distress, Clear bilaterally - Abdomen Abdomen: Soft, Non distended, Other (mild TTP RLQ without rebound or guarding) - Back Back: No CVA TTP - Derm Derm: Normal color, Warm and dry - Extremities Extremities: No edema Results - Vitals Vitals: Oxygen O2 Source Room air - Labs Labs: Laboratory Tests 07/27/18 07/27/18 07/27/18 05:00 05:00 05:45 WBC 6.5 RBC 3.98 L Hgb 10.3 L Hct 31.9 L MCV 80.1 L MCH 25.9 L MCHC 32.4 RDW 15.7 H Plt Count 419 MPV 7.3 L Neut # (Auto) 3.0 Lymph # (Auto) 3.0 [place] # (Auto) 0.4 Eos # (Auto) 0.1 Baso # (Auto) 0.0 Absolute Nucleated RBC 0.01 Nucleated RBC % 0.1 Sodium 140 Potassium 3.9 Chloride 105 Carbon Dioxide 24 Anion Gap 11.0 BUN 20 Creatinine 0.8 Estimated GFR (MDRD) 109 Glucose 92 Calcium 9.2 Total Bilirubin < 0.2 L AST 16 ALT 20 Alkaline Phosphatase 113 Total Protein 7.4 Albumin 3.5 Globulin 3.9 Albumin/Globulin Ratio 0.9 L Lipase 31 Urine Color YELLOW Urine Clarity CLEAR Urine pH 6.0 Ur Specific [place] 1.015 Urine Protein NEGATIVE Urine Glucose (UA) NEGATIVE Urine Ketones NEGATIVE Urine Occult Blood LARGE H Urine Nitrite NEGATIVE Urine Bilirubin NEGATIVE Urine Urobilinogen 1 (NORMAL) Ur Leukocyte Esterase SMALL H Urine RBC 11-25 H Urine WBC 4-5 Ur Squamous Epith Cells MOD Squamous H Urine Bacteria Rare Ur Microscopic Review INDICATED Urine Culture Comments NOT INDICATED - Rads (name of study) CT A/P Radiology: Prelim report reviewed, See rad report PD MEDICAL DECISION MAKING - ED course Complexity details: reviewed results, re-evaluated patient, considered differential, d/w patient ED course: patient declined analgesics during ED stay. Results discussed and patient reassured. Instructed to return if worse, f/u with accounts payable payroll coordinator within 1-2 days Departure - Departure Disposition: 01 Home, Self Care Clinical Impression: Abdominal pain Qualifiers: Abdominal location: right lower quadrant Qualified Code(s): R10.31 - Right lower quadrant pain Condition: Good Instructions: ED Abdominal Pain Unkn Cause Comments: Follow up with your doctor tomorrow as scheduled Discharge Date/Time: 07/27/18 07:54
[2018-07-27 05:29] LABS: BASOPHILS % (AUTO) 0.6 %; EOSINOPHILS # (AUTO) 0.1 10^3/uL (0.0-0.7); EOSINOPHILS % (AUTO) 1.7 %; HGB - HEMOGLOBIN 10.3 g/dL (12.0-16.0); LYMPHOCYTES % (AUTO) 45.7 %; MEAN CORPUSCULAR HEMOGLOBIN 25.9 pg (27.0-31.0); MEAN CORPUSCULAR HGB CONC 32.4 g/dL (32.0-36.0); MEAN CORPUSCULAR VOLUME 80.1 fL (81.0-99.0); MEAN PLATELET VOLUME 7.3 fL (7.9-10.8); MONOCYTES # (AUTO) 0.4 10^3/uL (0.0-1.0); MONOCYTES % (AUTO) 6.8 %; NEUTROPHILS % (AUTO) 45.2 %; PLT - PLATELET COUNT 419 10^3/uL (130-450); RED BLOOD COUNT 3.98 10^6/uL (4.20-5.40); RED CELL DISTRIBUTION WIDTH 15.7 % (12.0-15.0); WHITE BLOOD COUNT 6.5 x10^3/uL (4.8-10.8)
[2018-07-27 05:38] LABS: ALBUMIN 3.5 g/dL (3.2-5.5); ALBUMIN/GLOBULIN RATIO 0.9 (1.0-2.2); ALKALINE PHOSPHATASE 113 IU/L (42-121); ALT ALANINE AMINOTRANSFERASE 20 IU/L (10-60); AST ASPARTATE AMINOTRANSFERASE 16 IU/L (10-42); BILIRUBIN,TOTAL < 0.2 mg/dL (0.2-1.0); BUN - BLOOD UREA NITROGEN 20 mg/dL (6-20); CALCIUM 9.2 mg/dL (8.5-10.3); CARBON DIOXIDE - CO2 24 mmol/L (21-32); CHLORIDE 105 mmol/L (101-111); CREATININE 0.8 mg/dL (0.4-1.0); GFR - MDRD 109 (>89); GLUCOSE 92 mg/dL (70-100); LIPASE 31 U/L (22-51); SODIUM 140 mmol/L (135-145); TOTAL PROTEIN 7.4 g/dL (6.7-8.2)
[2018-07-27] MEDS ORDERED: IOVERSOL 320 100 ML VIAL IVP ONE ×2 (05:45→06:13)
[2018-07-27 05:55] LABS: BILIRUBIN,URINE NEGATIVE (NEGATIVE); GLUCOSE, URINE (UA) NEGATIVE (NEGATIVE); KETONES,URINE (UA) NEGATIVE (NEGATIVE); LEUKOCYTE ESTERASE, URINE SMALL (NEGATIVE); NITRITE,URINE NEGATIVE (NEGATIVE); OCCULT BLOOD,URINE LARGE (NEGATIVE); PROTEIN,URINE NEGATIVE (NEGATIVE); UROBILINOGEN,URINE 1 (NORMAL) E.U./dL (NORMAL)
[2018-07-27 06:03] LABS: BACTERIA,URINE Rare /HPF (None Seen); CLARITY,URINE CLEAR (CLEAR); SQUAMOUS EPITHELIAL CELL,UR MOD Squamous (<= Few)
--- NOTE | 2018-07-27 06:22 | CT Report ---
Reason: RLQ pain Procedure Date: 07/27/2018 Accession Number: [id number] / [id number] Procedure: CT - Abdomen/Pelvis W CPT Code: FULL RESULT: EXAM: CT ABDOMEN AND PELVIS EXAM DATE: 07/27/2018 06:11 AM. CLINICAL HISTORY: RLQ pain. 1 week. COMPARISONS: None. TECHNIQUE: Routine helical CT imaging was performed through the abdomen and pelvis. IV contrast: 100 ML OPTIRAY 320. Enteric contrast: No. Reconstructions: Coronal and sagittal. In accordance with CT protocol optimization, one or more of the following dose reduction techniques were utilized for this exam: automated exposure control, adjustment of mA and/or KV based on patient size, or use of iterative reconstructive technique. FINDINGS: Lung Bases: Unremarkable. Liver: No focal abnormality seen. Gallbladder/Bile Ducts: Unremarkable. Spleen: Normal. Pancreas: Normal. Adrenal Glands: Normal. Kidneys: Normal. No masses or hydronephrosis. Peritoneal Cavity/Bowel: No bowel obstruction seen. No diverticulitis. No free air or free fluid. Moderate stool in the colon. No lymphadenopathy. Appendix appears normal. Pelvic Organs: Enlarged uterus. Urinary bladder is decompressed. Bladder wall thickening. Vasculature: No aneurysms or other significant abnormality. Bones: No significant abnormality. Other: None. IMPRESSION: 1. Appendix appears normal. 2. Moderate stool in the colon. 3. Enlarged uterus. 4. Urinary bladder wall thickening, probably due to nondistention. Cystitis not entirely excluded. RADIA
[2018-07-27 07:54] VITALS: BP 130/93
== END 2018-07-27 07:54 | disposition home or self-care (01) ==
LOC: ED 04:38
DX: O99.89 Other specified diseases and conditions complicating pregnancy, childbirth and the puerperium (principal); R10.31 Right lower quadrant pain
CPT/HCPCS: 36415; 74177; 80053; 81001; 83690; 85025; 99283; Q9967; 81003; 87086

== ENCOUNTER 2018-11-12 17:25 | Emergency (ER) | payer OTHER ==
[2018-11-12 18:04] LABS: BILIRUBIN,URINE NEGATIVE (NEGATIVE); CLARITY,URINE CLEAR (CLEAR); GLUCOSE, URINE (UA) NEGATIVE (NEGATIVE); KETONES,URINE (UA) NEGATIVE (NEGATIVE); LEUKOCYTE ESTERASE, URINE NEGATIVE (NEGATIVE); NITRITE,URINE NEGATIVE (NEGATIVE); OCCULT BLOOD,URINE SMALL (NEGATIVE); PH,URINE 6.5 PH (5.0-7.5); PROTEIN,URINE NEGATIVE (NEGATIVE); UROBILINOGEN,URINE 0.2 (NORMAL) E.U./dL (NORMAL)
[2018-11-12 18:08] LABS: BASOPHILS # (AUTO) 0.1 10^3/uL (0.0-0.1); BASOPHILS % (AUTO) 0.6 %; EOSINOPHILS # (AUTO) 0.2 10^3/uL (0.0-0.7); EOSINOPHILS % (AUTO) 1.9 %; HGB - HEMOGLOBIN 11.7 g/dL (12.0-16.0); LYMPHOCYTES # (AUTO) 2.7 10^3/uL (1.5-3.5); LYMPHOCYTES % (AUTO) 33.6 %; MEAN CORPUSCULAR HEMOGLOBIN 24.7 pg (27.0-31.0); MEAN CORPUSCULAR HGB CONC 30.8 g/dL (32.0-36.0); MEAN CORPUSCULAR VOLUME 80.3 fL (81.0-99.0); MONOCYTES # (AUTO) 0.4 10^3/uL (0.0-1.0); NEUTROPHILS # (AUTO) 4.7 10^3/uL (1.5-6.6); NEUTROPHILS % (AUTO) 58.5 %; PLT - PLATELET COUNT 326 10^3/uL (130-450); RED BLOOD COUNT 4.73 10^6/uL (4.20-5.40); RED CELL DISTRIBUTION WIDTH 14.8 % (12.0-15.0); WHITE BLOOD COUNT 8.1 x10^3/uL (4.8-10.8)
[2018-11-12 18:22] LABS: BILIRUBIN,TOTAL 0.5 mg/dL (0.2-1.0); CALCIUM 9.5 mg/dL (8.5-10.3); CREATININE 0.9 mg/dL (0.4-1.0)
[2018-11-12 18:36] LABS: BACTERIA,URINE None Seen /HPF (None Seen); RBC,URINE 0-5 /HPF (0-5); SQUAMOUS EPITHELIAL CELL,UR MANY Squamous (<= Few)
[2018-11-12 20:15] VITALS: BP 113/74
--- NOTE | 2018-11-12 20:38 | ED Physician Documentation ---
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 She has a history of migraine and has not had a migraine since May of this year. Review of Systems Constitutional: denies: Fever Eyes: reports: Photophobia. denies: Decreased vision Ears: denies: Ear pain Nose: denies: Rhinorrhea / runny nose, Congestion Throat: denies: Sore throat Cardiac: denies: Chest pain / pressure, Palpitations Respiratory: denies: Dyspnea, Cough GI: reports: Nausea, Vomiting : denies: Dysuria, Frequency Skin: denies: Rash Musculoskeletal: denies: Neck pain, Back pain, Extremity pain Neurologic: reports: Headache. denies: Generalized weakness, Focal weakness, Numbness, Head injury, LOC PD PAST MEDICAL HISTORY - Past Medical History Cardiovascular: None Respiratory: None Neuro: None Endocrine/Autoimmune: None GI: None CHUTE BOSS: None : None HEENT: None Psych: None Musculoskeletal: None Derm: None - Past Surgical History Past Surgical History: No - Present Medications Home Medications: Ambulatory Orders Medication Instructions Recorded Confirmed Pnv No.121/Iron/Folic Acid 1 tab PO DAILY 07/03/18 07/03/18 [ Multivitamin Tablet] - Allergies Allergies/Adverse Reactions: Allergies Allergy/AdvReac Type Severity Reaction Status Date / Time No Known Drug Allergies Allergy Verified 11/12/18 17:39 - Social History Does the pt smoke?: No Smoking Status: Never smoker Does the pt drink ETOH?: No Does the pt have substance abuse?: No - Immunizations Immunizations are current?: Yes - POLST Patient has POLST: No PD ED PE NORMAL - Vitals Vital signs reviewed: Yes (normal ) - General General: Alert and oriented X 3, No acute distress, Well developed/nourished - HEENT HEENT: Atraumatic, PERRL, EOMI, Ears normal, Moist mucous membranes, Pharynx benign, Dentition benign - Neck Neck: Supple, no meningeal sign, No bony TTP - Cardiac Cardiac: RRR, No murmur - Respiratory Respiratory: No respiratory distress, Clear bilaterally - Abdomen Abdomen: Soft, Non tender - Back Back: No CVA TTP, No spinal TTP - Derm Derm: Normal color, Warm and dry, No rash - Extremities Extremities: No deformity, No edema - Neuro Neuro: Alert and oriented X 3, fancy stitcher 2-12 intact, No motor deficit, No sensory deficit, Normal speech Eye Opening: Spontaneous Motor: Obeys Commands Verbal: Oriented GCS Score: 15 - Psych Psych: Normal mood, Normal affect Results - Vitals Vitals: Vital Signs - 24 hr 11/12/18 11/12/18 17:36 20:14 Temperature 36.5 C 36.0 C L Heart Rate 83 67 Respiratory 16 16 Rate Blood Pressure 125/76 113/74 O2 Saturation 100 98 Oxygen O2 Source Room air - Labs Labs: Laboratory Tests 11/12/18 11/12/18 11/12/18 17:50 17:50 17:50 WBC 8.1 RBC 4.73 Hgb 11.7 L Hct 38.0 MCV 80.3 L MCH 24.7 L MCHC 30.8 L RDW 14.8 Plt Count 326 MPV 9.0 Neut # (Auto) 4.7 Lymph # (Auto) 2.7 Green # (Auto) 0.4 Eos # (Auto) 0.2 Baso # (Auto) 0.1 Absolute Nucleated RBC 0.00 Nucleated RBC % 0.0 Sodium 137 Potassium 3.6 Chloride 103 Carbon Dioxide 26 Anion Gap 8.0 BUN 13 Creatinine 0.9 Estimated GFR (MDRD) 95 Glucose 112 H Calcium 9.5 Total Bilirubin 0.5 AST 16 ALT 12 Alkaline Phosphatase 80 Total Protein 8.0 Albumin 4.0 Globulin 4.0 Albumin/Globulin Ratio 1.0 Lipase 32 Urine Color YELLOW Urine Clarity CLEAR Urine pH 6.5 Ur Specific [place] 1.020 Urine Protein NEGATIVE Urine Glucose (UA) NEGATIVE Urine Ketones NEGATIVE Urine Occult Blood SMALL H Urine Nitrite NEGATIVE Urine Bilirubin NEGATIVE Urine Urobilinogen 0.2 (NORMAL) Ur Leukocyte Esterase NEGATIVE Urine RBC 0-5 Urine WBC 0-3 Ur Squamous Epith Cells MANY Squamous H Urine Bacteria None Seen Ur Microscopic Review INDICATED Urine Culture Comments NOT INDICATED PD MEDICAL DECISION MAKING - ED course Complexity details: reviewed old records, reviewed results, re-evaluated patient, considered differential, d/w patient ED course: 23-year-old female with a history of migraine headaches is developed a migraine and she is treated here in the emergency department with intravenous saline dexamethasone Toradol Compazine and Benadryl. Part way in to her treatment she has resolution of her headache and insist on leaving the emergency department. She appears to have a dystonic reaction to the Compazine. She is allowed to leave the department improved. Departure - Departure Disposition: 01 Home, Self Care Clinical Impression: Migraine Qualifiers: Migraine type: without aura Status migrainosus presence: without status migrainosus Intractability: not intractable Qualified Code(s): G43.009 - Migraine without aura, not intractable, without status migrainosus Medication reaction Qualifiers: Encounter type: initial encounter Qualified Code(s): T50.905A - Adverse effect of unspecified drugs, medicaments and biological substances, initial encounter Instructions: ED Drug React Dystonic Adverse, ED Headache Migraine Follow-Up: Sirena Paiz, [employer] OPERATOR [Primary Care Provider] - Comments: Today 1 of the medications we gave you Compazine appears to have caused a dystonic type of reaction. In the future make certain that this is not given to you again as this will likely happen. Discharge Date/Time: 11/12/18 21:33
[2018-11-12] MEDS ORDERED: SODIUM CHLORIDE 0.9% 1,000 ML IV ONE (20:45)
[2018-11-12] MEDS ORDERED: diphenhydrAMINE INJ 50 MG/ML VIAL IVP STA (20:45)
[2018-11-12] MEDS ORDERED: PROCHLORPERAZINE 10 MG/2 ML VIAL IVP STA (20:45)
[2018-11-12] MEDS ORDERED: DEXAMETHASONE 10 MG/ML VIAL IVP STA (20:45)
[2018-11-12] MEDS ORDERED: KETOROLAC 30 MG/ML VIAL IVP STA (20:45)
== END 2018-11-12 21:33 | disposition home or self-care (01) ==
LOC: ED 17:25
DX: G43.009 Migraine without aura, not intractable, without status migrainosus (principal); G24.09 Other drug induced dystonia; T43.3X5A Adverse effect of phenothiazine antipsychotics and neuroleptics, initial encounter; Y92.538 Other ambulatory health services establishments as the place of occurrence of the external cause
CPT/HCPCS: 36415; 80053; 81001; 83690; 85025; 96374; 96375; 99284; 99285; J1200; 81003; 87086

== ENCOUNTER 2019-06-02 15:58 | Emergency (ER) | payer OTHER ==
--- NOTE | 2019-06-02 16:33 | ED Physician Documentation ---
PD HPI UPPER EXT INJURY - Stated complaint Stated Complaint: LT THUMB LAC - Chief complaint Chief Complaint: Laceration - History obtained from History obtained from: Patient - History of Present Illness Location: Left, Finger (thumb) Type of injury: Laceration (Using a knife to cut heart and bladder and the knife slipped and cut her thumb. There is not a large cut but a flap and still is bleeding despite direct pressure after several minutes.) Where injury occurred: Home Timing - onset: Today Timing - details: Abrupt onset, Still present (still bleeding if not holding pressure) Worsened by: Moving, Palpating Associated symptoms: Numbness (just distal to the lac at side of thumb tip.). No: Weakness Contributing factors: No: Anticoagulated Similar symptoms before: Has not had sx before Review of Systems Constitutional: denies: Fever, Chills Nose: denies: Rhinorrhea / runny nose, Congestion Throat: denies: Sore throat Respiratory: denies: Cough Neurologic: reports: Numbness (Small patch of numbness on the side of the thumb just distal to the laceration. The very tip and the other side of the thumb have normal sensation.). denies: Focal weakness PD PAST MEDICAL HISTORY - Past Medical History Cardiovascular: None Respiratory: None Neuro: None Endocrine/Autoimmune: None GI: None IOS ARCHITECT: None : None HEENT: None Psych: None Musculoskeletal: None Derm: None - Past Surgical History Past Surgical History: No - Present Medications Home Medications: Ambulatory Orders Medication Instructions Recorded Confirmed Pnv No.121/Iron/Folic Acid 1 tab PO DAILY 07/03/18 07/03/18 [ Multivitamin Tablet] - Allergies Allergies/Adverse Reactions: Allergies Allergy/AdvReac Type Severity Reaction Status Date / Time No Known Drug Allergies Allergy Verified 06/02/19 16:07 - Social History Does the pt smoke?: No Smoking Status: Never smoker Does the pt drink ETOH?: No Does the pt have substance abuse?: No - Immunizations Immunizations are current?: Yes - POLST Patient has POLST: No PD ED PE NORMAL - Vitals Vital signs reviewed: Yes - General General: Alert and oriented X 3, No acute distress, Well developed/nourished - Derm Derm: Normal color, Warm and dry - Neuro Neuro: No motor deficit, Other (1 cm rounded area of numbness to touch and pinprick just distal to the laceration on the side of the thumb. The very tip has sensation. There is no involvement of laceration to the nailbed itself. There is a 1 cm flap laceration on the ulnar side of the thumb at the distal phalanx at the level of the mid nailbed. There is ongoing bleeding and a slow drip from the wound consistent with a small vessel injury. She has good movement of the thumb with both flexion and extension.) PD ED PE EXPANDED - Extremities CINTHIA UE/Hands Visual: 1 - laceration Results - Vitals Vitals: Vital Signs - 24 hr 06/02/19 06/02/19 16:07 17:43 Temperature 37.3 C 37.1 C Heart Rate 78 67 Respiratory 18 16 Rate Blood Pressure 138/90 H 142/87 H O2 Saturation 99 99 Oxygen O2 Source Room air Procedures - Laceration (location) left distal thumb Length in cm: 1 Wound type: Curved, Flap, Into subcut fat, Clean Neurovascular status: Motor intact, Vascular intact. No: Sensory intact Tendon involvement: Tendon intact Anesthesia: Lidocaine 2% (digital block then some local additionally) Wound Preparation: Irrigated copiously NS Skin layer closure: Nylon, Interrupted, Size #-0 - enter number (4), Sutures - enter # (4) Other: Patient tolerated well, No complications, Dressing applied, Tetanus UTD Complexity: Simple Departure - Departure Disposition: 01 Home, Self Care Clinical Impression: Thumb laceration Qualifiers: Encounter type: initial encounter Damage to nail status: without damage Foreign body presence: without foreign body Laterality: left Qualified Code(s): S61.012A - Laceration without foreign body of left thumb without damage to nail, initial encounter Condition: Stable Record reviewed to determine appropriate education?: Yes Instructions: ED Laceration Hand Follow-Up: Sirena Paiz ARNP [Primary Care Provider] - Comments: It is okay to wash and shower. Clean off the wound twice a day with soap and water, or peroxide and water. Apply some antibiotic ointment to it to keep it moist. Also to watch for signs of infection such as purulence, redness or increasing pain. Return to your primary care or the ER at the specified time for suture removal. Suture removal 8 to 10 days. Tylenol or ibuprofen for pains. Activity as tolerated. Discharge Date/Time: 06/02/19 17:44
[2019-06-02] MEDS ORDERED: LIDOCAINE-MPF 2% 5 ML VIAL SUBQ STA (16:45)
[2019-06-02 17:44] VITALS: BP 142/87
== END 2019-06-02 17:44 | disposition home or self-care (01) ==
LOC: ED 15:58
DX: S61.012A Laceration without foreign body of left thumb without damage to nail, initial encounter (principal); W26.0XXA Contact with knife, initial encounter; Y93.G1 Activity, food preparation and clean up; Y92.009 Unspecified place in unspecified non-institutional (private) residence as the place of occurrence of the external cause
CPT/HCPCS: 12001; 99282; 99283